=== PATIENT | female | born 1950 | race Caucasian/White ===

== ENCOUNTER → 2019-01-16 | Outpatient (CLI) | payer MEDICARE, BC | LOC: LAB 16:25 | DX: N39.0 Urinary tract infection, site not specified (principal) ==

== ENCOUNTER → 2020-04-11 | Outpatient (CLI) | payer MEDICARE, BC | LOC: RAD 09:05 | DX: M47.22 Other spondylosis with radiculopathy, cervical region (principal); M50.120 Mid-cervical disc disorder, unspecified level ==

== ENCOUNTER → 2020-04-19 | Outpatient (CLI) | payer MEDICARE, BC | LOC: RAD 09:51 | DX: M50.11 Cervical disc disorder with radiculopathy, high cervical region (principal) ==

== ENCOUNTER → 2022-06-07 | Outpatient (CLI) | payer MEDICARE, BC ==
[2022-06-07 16:53] LABS: URINE APPEARANCE HAZY; URINE COLOR YELLOW
[2022-06-07 16:54] LABS: URINE BILIRUBIN NEGATIVE (NEGATIVE); URINE BLOOD 50 ery/uL (NEGATIVE); URINE GLUCOSE NEGATIVE (NEGATIVE); URINE KETONE NEGATIVE (NEGATIVE); URINE LEUKOCYTE ESTERASE 1+ (NEGATIVE); URINE NITRATE NEGATIVE (NEGATIVE); URINE PROTEIN(semi-quant) 1+ (NEGATIVE); URINE UROBILINOGEN NORMAL (NORMAL); URINE WBC 31-50 /hpf (0-3)
== END ==
LOC: LAB 16:17
PROVIDERS: Internal Medicine
DX: N39.0 Urinary tract infection, site not specified (principal)

== ENCOUNTER → 2022-06-13 | Outpatient (CLI) | payer MEDICARE, BC | LOC: RAD 06-08 14:00 | DX: N26.1 Atrophy of kidney (terminal) (principal) ==